=== PATIENT | male | born 1990 | race Caucasian/White ===

== ENCOUNTER → 2018-01-03 | Outpatient (CLI) | payer BC ==
--- NOTE | 2018-01-03 09:02 | US ---
EXAMINATION TYPE: US scrotum with doppler. TECHNIQUE: Grayscale and color Doppler Duplex imaging performed of the scrotum. DATE OF EXAM: 01/03/2018 COMPARISON: NONE CLINICAL HISTORY: 27-year-old male R10.84 abdominal pain, N50.9 Enlarged Testicle. Patient complains of low pelvic/abdominal pain, doctor felt right testicle is enlarged. Findings: TESTICLES: Right Testicle: 5.2 x 2.5 x 3.9 cm for a volume of 26.8 mL. Left Testicle: 5.1 x 2.6 x 3.4 cm for a volume of 23.6 mL. EPIDIDYMIS HEAD: Right Epididymis: 1.3 x 0.8 cm Left Epididymis: 1.0 x 1.1 cm Doppler performed to assess for testicular vascularity; good bilateral color flow and waveforms are s een. Homogeneous appearance of the testicles without hyperemia. Presence of hydroceles: small amount of fluid around right testicle. No varicocele seen. IMPRESSION: 1. No sonographic evidence for testicular torsion, testicular mass, or epididymoorchitis. 2. Testicular measurements as above, the right is only negligibly larger than the left. 3. Small right-sided hydrocele.
--- NOTE | 2018-01-03 09:04 | US ---
EXAMINATION TYPE: US abdomen complete DATE OF EXAM: 01/03/2018 COMPARISON: NONE CLINICAL HISTORY: 27-year-old male R10.84 abdominal pain, N50.9 Enlarged Testicle. Low abdomen/pelvic pain TECHNIQUE: Multiple sonographic images of the abdomen are obtained. FINDINGS: Liver Length: 12.4 cm Gallbladder Wall: 0.2 cm CBD: 0.3 cm Spleen: 11.6 cm Right Kidney: 9.6 x 4.3 x 5.8 cm Left Kidney: 10.9 x 5.3 x 5.4 cm Pancreas: visualized portions wnl Liver: wnl Gallbladder: No stones seen Evidence for sonographic Vee's sign: No CBD: wnl Spleen: wnl Right Kidney: No hydronephrosis. Left Kidney: No hydronephrosis. Upper IVC: wnl Abd Aorta: wnl HEAD OF QUALITY NOTES: Scanned the patient's area of concern, low abdomen/pelvic area, with and without v alsalva. There is no definite abnormality noted, no obvious hernia seen. IMPRESSION: 1. Unremarkable sonographic examination of the abdomen. 2. Additional targeted scanning at the site of patient's concern along the midline lower abdomen/pelv is region. No discrete abnormality seen of the superficial soft tissues and no evident abdominal wall hernia.
== END | disposition home or self-care (01) ==
LOC: RADUSWWP 07:41
PROVIDERS: ATTEND Family Medicine
DX: N43.3 Hydrocele, unspecified (principal); R10.9 Unspecified abdominal pain
CPT/HCPCS: 76700; 76870; 93975

== ENCOUNTER 2021-08-01 11:16 | Emergency (ER) | payer BC ==
[2021-08-01 13:25] VITALS: RESP 18; TEMP 98.6
--- NOTE | 2021-08-01 13:44 | ED ---
Abdominal Pain HPI - General Source: patient, RN notes reviewed Mode of arrival: ambulatory Limitations: no limitations <Dallin Daigle - Last Filed: 08/01/21 15:29> <Violeta Prater - Last Filed: 08/02/21 00:42> - General Chief Complaint: Abdominal Pain Stated Complaint: abd pain Time Seen by Provider: 08/01/21 13:00 - History of Present Illness Initial Comments: Patient is a 31-year-old male presented to the ED for abdominal pain that has been worsening over the last week. She states pain is in the right flank traveling around 2 general abdomen area, reported discomfort "under belt buckle" in suprapubic region. Patient denies any nausea, vomiting, fever, any changes in bowel movements. Patient does report slight decrease in appetite related to pain. Pain is stated to be 5/10 pain, the patient describes pain similar to past hydrocele back in 2018. (Dallin Daigle) - Related Data Home Medications Medication Instructions Recorded Confirmed No Known Home Medications 08/01/21 08/01/21 Allergies Allergy/AdvReac Type Severity Reaction Status Date / Time No Known Allergies Allergy Verified 08/01/21 13:48 Review of Systems ROS Other: All systems not noted in ROS Statement are negative. <Dallin Daigle - Last Filed: 08/01/21 15:29> ROS Other: All systems not noted in ROS Statement are negative. <Violeta Prater - Last Filed: 08/02/21 00:42> ROS Statement: Those systems with pertinent positive or pertinent negative responses have been documented in the HPI. Past Medical History Past Medical History: No Reported History History of Any Multi-Drug Resistant Organisms: None Reported Past Surgical History: No Surgical Hx Reported Past Psychological History: No Psychological Hx Reported Smoking Status: Current every day smoker Past Alcohol Use History: Daily Past Drug Use History: Marijuana <Dallin Daigle - Last Filed: 08/01/21 15:29> General Exam Limitations: no limitations General appearance: alert, in no apparent distress Respiratory exam: Present: normal lung sounds bilaterally. Absent: respiratory distress, wheezes, rales, rhonchi, stridor Cardiovascular Exam: Present: regular rate, normal rhythm, normal heart sounds. Absent: systolic murmur, diastolic murmur, rubs, gallop, clicks GI/Abdominal exam: Present: soft, tenderness (Mild), normal bowel sounds exam: Present: normal inspection External exam: Present: normal external exam Back exam: Present: tenderness (Right flank) Neurological exam: Present: alert, oriented X3 Skin exam: Present: warm, dry, intact, normal color. Absent: rash <Dallin Daigle - Last Filed: 08/01/21 15:29> Course Vital Signs 08/01/21 08/01/21 13:22 15:45 Temperature 98.6 F 98.6 F Pulse Rate 81 82 Respiratory 18 18 Rate Blood Pressure 165/104 147/80 O2 Sat by Pulse 99 99 Oximetry Medical Decision Making - Lab Data Result diagrams: 08/01/21 13:48 08/01/21 13:48 <Dallin Daigle - Last Filed: 08/01/21 15:29> - Lab Data Result diagrams: 08/01/21 13:48 08/01/21 13:48 <Violeta Prater - Last Filed: 08/02/21 00:42> - Medical Decision Making CT shows evidence of probable colitis. Patient was placed on clear liquid diet and will take anti-inflammatories and follow-up with PCP and return for any worsening change in symptoms. Patient prior GI follow-up also. (Dallin Daigle) I was available for consultation in the emergency department. The history and physical exam were done by the midlevel provider. I was consulted for this [facility]. I reviewed the case with the midlevel provider and based on their presentation of the patient, I agree with the assessment, medical decision making and plan of care as documented. Chart was dictated using [employer] dictation software. Attempts were made to correct any dictation errors however some typographical errors may persist. (Violeta Prater) - Lab Data Lab Results 08/01/21 08/01/21 08/01/21 Range/Units 13:48 13:48 13:48 WBC 13.2 H (3.8-10.6) k/uL RBC 5.31 (4.30-5.90) m/uL Hgb 17.2 (13.0-17.5) gm/dL Hct 51.0 (39.0-53.0) % MCV 96.1 (80.0-100.0) fL MCH 32.4 (25.0-35.0) pg MCHC 33.7 (31.0-37.0) g/dL RDW 11.9 (11.5-15.5) % Plt Count 296 (150-450) k/uL MPV 8.7 Neutrophils % 78 % Lymphocytes % 10 % Monocytes % 8 % Eosinophils % 3 % Basophils % 1 % Neutrophils # 10.2 H (1.3-7.7) k/uL Lymphocytes # 1.3 (1.0-4.8) k/uL Monocytes # 1.0 (0-1.0) k/uL Eosinophils # 0.4 (0-0.7) k/uL Basophils # 0.1 (0-0.2) k/uL Sodium 139 (137-145) mmol/L Potassium 4.5 (3.5-5.1) mmol/L Chloride 103 (98-107) mmol/L Carbon Dioxide 27 (22-30) mmol/L Anion Gap 9 mmol/L BUN 14 (9-20) mg/dL Creatinine 0.78 (0.66-1.25) mg/dL Est GFR (CKD-EPI)AfAm >90 (>60 ml/min/1.73 sqM) Est GFR (CKD-EPI)NonAf >90 (>60 ml/min/1.73 sqM) Glucose 102 H (74-99) mg/dL Calcium 10.2 (8.4-10.2) mg/dL Total Bilirubin 0.8 (0.2-1.3) mg/dL AST 27 (17-59) U/L ALT 21 (4-49) U/L Alkaline Phosphatase 86 (38-126) U/L Total Protein 7.8 (6.3-8.2) g/dL Albumin 4.6 (3.5-5.0) g/dL Amylase 54 (30-110) U/L Lipase 84 (23-300) U/L Urine Color Yellow Urine Appearance Clear (Clear) Urine pH 6.5 (5.0-8.0) Ur Specific [place] 1.019 (1.001-1.035) Urine Protein Negative (Negative) Urine Glucose (UA) Negative (Negative) Urine Ketones Negative (Negative) Urine Blood Negative (Negative) Urine Nitrite Negative (Negative) Urine Bilirubin Negative (Negative) Urine Urobilinogen <2.0 (<2.0) mg/dL Ur Leukocyte Esterase Negative (Negative) Disposition Is patient prescribed a controlled substance at d/c from ED?: No Time of Disposition: 15:30 <Dallin Daigle - Last Filed: 08/01/21 15:29> <Violeta Prater - Last Filed: 08/02/21 00:42> Clinical Impression: Colitis Disposition: HOME SELF-CARE Condition: Stable Instructions (If sedation given, give patient instructions): Abdominal Pain (ED), Colitis (ED) Additional Instructions: Please return to the Emergency Department if symptoms worsen or any other concerns. Referrals: None,Stated [Primary Care Provider] - 1-2 days Lazara Conner MD [STAFF PHYSICIAN] - 1-2 days
[2021-08-01 14:01] LABS: Basophils # (A) 0.1 k/uL (0-0.2); Basophils % (A) 1 %; Eosinophils # (A) 0.4 k/uL (0-0.7); Eosinophils % (A) 3 %; HGB 17.2 gm/dL (13.0-17.5); Lymphocytes # (A) 1.3 k/uL (1.0-4.8); Lymphocytes % (A) 10 %; MCH 32.4 pg (25.0-35.0); MCHC 33.7 g/dL (31.0-37.0); MCV 96.1 fL (80.0-100.0); Mean Platelet Volume 8.7; Monocytes % (A) 8 %; Neutrophils # (A) 10.2 k/uL (1.3-7.7); Neutrophils % (A) 78 %; Platelet Count 296 k/uL (150-450); RBC 5.31 m/uL (4.30-5.90); RDW 11.9 % (11.5-15.5); WBC 13.2 k/uL (3.8-10.6)
[2021-08-01 14:10] LABS: ALT 21 U/L (4-49); AST 27 U/L (17-59); African American GFR (CKD) >90 (>60 ml/min/1.73 sqM); Albumin 4.6 g/dL (3.5-5.0); Alkaline Phosphatase 86 U/L (38-126); Amylase 54 U/L (30-110); Anion Gap 9 mmol/L; Blood Urea Nitrogen 14 mg/dL (9-20); Calcium 10.2 mg/dL (8.4-10.2); Carbon Dioxide 27 mmol/L (22-30); Chloride 103 mmol/L (98-107); Glucose 102 mg/dL (74-99); Lipase 84 U/L (23-300); Non-African American GFR(CKD) >90 (>60 ml/min/1.73 sqM); Potassium 4.5 mmol/L (3.5-5.1); Sodium 139 mmol/L (137-145); Total Bilirubin 0.8 mg/dL (0.2-1.3); Total Protein 7.8 g/dL (6.3-8.2)
[2021-08-01 14:13] LABS: Appearance,Urine Clear (Clear); Bilirubin,Urine Negative (Negative); Blood,Urine Negative (Negative); Color,Urine Yellow; Glucose,Urine (UA) Negative (Negative); Ketones,Urine Negative (Negative); Leukocyte Esterase,Urine Negative (Negative); Nitrite,Urine Negative (Negative); PH, Urine 6.5 (5.0-8.0); Protein,Urine Negative (Negative); Specific Gravity,Urine 1.019 (1.001-1.035); Urobilinogen,Urine <2.0 mg/dL (<2.0)
[2021-08-01] MEDS ORDERED: SODIUM CHLORIDE 0.9% 1,000 ML IV ONE (14:30)
--- NOTE | 2021-08-01 15:20 | CT ---
EXAMINATION TYPE: CT abdomen pelvis w con DATE OF EXAM: 08/01/2021 COMPARISON: HISTORY: Pelvic pain. CT DLP: 808.4 mGycm Automated exposure control for dose reduction was used. TECHNIQUE: Helical acquisition of images from the lung bases through the pelvis have been completed. CONTRAST: Performed without Oral Contrast and with IV Contrast, patient injected with 100 mL of Isovue 300. FINDINGS: Lack of oral contrast could compromise sensitivity LUNG BASES: 2 numerous to count punctate pulmonary nodules are present at the right lung base AORTA: No significant abnormality is appreciated. LIVER/GB: No significant abnormality is appreciated. PANCREAS: No significant abnormality is seen. SPLEEN: No significant abnormality is seen. ADRENALS: No significant abnormality is seen. KIDNEYS: No significant abnormality is seen. REPRODUCTIVE ORGANS: No significant abnormality is seen BOWEL: There is questionable wall thickening along the colon. No evident appendicitis. FREE AIR: No Free Air visible. ASCITES: None visible. PELVIC ADENOPATHY: None visualized. RETROPERITONEAL ADENOPATHY: No Retroperitoneal Adenopathy visible. URINARY BLADDER: No significant abnormality is seen. OSSEOUS STRUCTURES: There is a spinal curvature.. IMPRESSION: QUESTIONABLE COLONIC WALL THICKENING, THERE MAY BE LACK OF DISTENTION, DIFFICULT TO EXCLUDE COLITIS. INDETERMINATE PULMONARY NODULES.
[2021-08-01 15:45] VITALS: BP 147/80; PULSE 82
== END 2021-08-01 15:45 | disposition home or self-care (01) ==
LOC: EC 11:16
DX: K52.9 Noninfective gastroenteritis and colitis, unspecified (principal); F17.200 Nicotine dependence, unspecified, uncomplicated; F12.90 Cannabis use, unspecified, uncomplicated
CPT/HCPCS: 36415; 80053; 82150; 83690; 85025; 81003; 74177; 96360; 99284; Q9967

== ENCOUNTER 2021-11-10 09:57 | Day surgery (SDC) | payer BC ==
[2021-11-04 15:53] VITALS: BMI 22.5
[2021-11-10 10:15] VITALS: TEMP 98
[2021-11-10] MEDS ORDERED: LACTATED RINGERS 1,000 ML IV ONE (10:15)
[2021-11-10] MEDS ORDERED: LIDOCAINE 1% (10MG/ML) FOR IV START INTRADERMA PRN (10:25)
[2021-11-10] MEDS ORDERED: LACTATED RINGERS 1,000 ML IV SCH (10:25)
[2021-11-10] MEDS ORDERED: PROPOFOL 10 MG/ML 20 ML VIAL IV ONE (10:57)
[2021-11-10] MEDS ORDERED: LIDOCAINE 1% INJ 10MG/ML (20 ML MDV) ONE (10:57)
--- NOTE | 2021-11-10 11:19 | P.PCN ---
Date of Procedure: 11/10/21 Implants: BRIEF HISTORY: Patient is a 31-year-old pleasant male scheduled for an elective colonoscopy as a part of evaluation of lower abdominal pain and altered bowel movements for the last 3 months duration. PROCEDURE PERFORMED: Colonoscopy. PREOPERATIVE DIAGNOSIS: Lower abdominal pain and change in bowel or 3 months duration. IV sedation per Anesthesia. PROCEDURE: After informed consent was obtained, the patient, was brought into the endoscopy unit. IV sedation was administered by Anesthesia under continuous monitoring. Digital rectal examination was normal. Initially the Olympus CF-160 flexible video colonoscope was then inserted in the rectum, gradually advanced into the cecum without any difficulty. Careful examination was performed as the scope was gradually being withdrawn. Ileocecal valve and the appendiceal orifice were visualized and appeared normal. Prep was excellent. Terminal ileum was intubated and appeared normal. Mucosa of the cecum, ascending colon, transverse colon, descending colon, sigmoid colon, and rectum appeared normal. Retroflexion was performed in the rectum and no lesions were seen. The patient tolerated the procedure well. IMPRESSION: Normal-appearing colon from rectum to cecum with no evidence of colorectal neoplasia. RECOMMENDATIONS: Findings of this examination were discussed with the patient as his family. He was advised to be a high-fiber diet and take supplements a regular basis.
[2021-11-10 11:38] VITALS: RESP 16
[2021-11-10 11:41] VITALS: BP 144/78; PULSE 66
== END 2021-11-10 12:00 | disposition home or self-care (01) ==
LOC: ORWHC2ENDO 09:57
PROVIDERS: ATTEND Internal Medicine Gastroenterology
DX: R19.4 Change in bowel habit (principal); R10.30 Lower abdominal pain, unspecified
CPT/HCPCS: 45378; J2001; J2704